=== PATIENT | male | born 1970 | race African-American/Black ===

== ENCOUNTER 2018-04-14 13:46 | Emergency (ER) | payer SELFPAY ==
[~2018-04-14] VITALS: Ht 172.7 cm; Wt 80.0 kg
[2018-04-14 13:57] VITALS: BP 127/84
[2018-04-14] MEDS ORDERED: FLUORESCEIN SODIUM 1MG/STRIP OP ONE (16:45)
[2018-04-14] MEDS ORDERED: TETRACAINE 0.5% OPHTH DROPS 4ML OP ONE (16:45)
== END 2018-04-14 18:40 | disposition home or self-care (01) ==
LOC: ER 14:51
DX: H53.8 Other visual disturbances (principal)
CPT/HCPCS: 99283